=== PATIENT | female | born 1970 | race Caucasian/White ===

== ENCOUNTER 2020-05-13 18:31 | Emergency (ER) | payer MEDICARE ==
[~2020-05-13] VITALS: Ht 167.6 cm; Wt 83.9 kg
[~2020-05-13 18:31] MED LIST: ALPR1TAB2 PO; AMOX1TAB64 PO; ASCO500C10 PO; BUTA1CAP30 PO; CYCL7.5T25 PO; DOXY100C2 PO; FIORICET; LEVE500T53 PO; MAGN400T36 PO; MAGN400T9 PO; NIMO30CA3 PO; ONDA4TAB7 PO; OXYC5TAB2 PO
--- NOTE | 2020-05-13 18:48 | NUR ---
INITIAL PT CONTACT. PT PRESENTS TO ED C/O "I'VE BEEN HAVING REALLY BAD LOW BACK PAIN AND I'LL DRINK A TON OF WATER AND I'LL BARELY PEE AT ALL. IT'S BURNING WHEN I PEE AND IT GOES UP MY BACK WHEN I PEE. NUMBNESS/TINGLING DOWN MY LEGS". +FREQUENT URINATION AT NIGHT. C/O LOWER BACK PAIN AND ABD PAIN THROUGHOUT. PT ALSO C/O CHEST TIGHTNESS AND AND SOB. PT SITTING UPRIGHT ON GUER[place], NADNona, VSS. PT DENIES ANY ADDITIONAL NEEDS AT THIS TIME. CALL LIGHT AND BELONGINGS WITHIN REACH.
--- NOTE | 2020-05-13 19:30 | NUR ---
ERP AT BEDSIDE
--- NOTE | 2020-05-13 19:47 | NUR ---
BLADDER SCAN DONE PER ERP ORDER. APPROX 150-200ML NOTED IN BLADDER. PT TOLERATED WELL.
[2020-05-13 19:54] LABS: MICROSCOPIC NOT IND
[2020-05-13 20:19] VITALS: BP 121/40
--- NOTE | 2020-05-13 20:29 | NUR ---
Patient given discharge instructions and they have confirmed that they understand the instructions. Patient ambulatory with steady gait.
== END 2020-05-13 20:30 | disposition home or self-care (01) ==
LOC: ED 20:00
DX: R10.2 Pelvic and perineal pain (principal); R06.02 Shortness of breath; R07.89 Other chest pain; M54.5 Low back pain; Z86.73 Personal history of transient ischemic attack (TIA), and cerebral infarction without residual deficits
CPT/HCPCS: 81003; 99284

== ENCOUNTER 2020-11-19 14:29 | Emergency (ER) | payer MEDICARE, OTHER ==
[~2020-11-19] VITALS: Ht 167.6 cm; Wt 89.5 kg
--- NOTE | 2020-11-19 14:55 | NUR ---
Assist RN: first contact with patient. Patient presents to ER c/o chest pressure radiating to left arm. Also c/o SOB. Symptoms intermittent x a couple months but worse the last couple days. Also c/o chronic cough. No cardiac hx. Patient is in NAD. Respirations even and unlabored.
[2020-11-19] MEDS ORDERED: ASPIRIN 81 MG TABLET CHEW PO ONE (15:00)
[2020-11-19] MEDS ORDERED: ASPIRIN 81 MG TABLET CHEW ONE (15:11)
--- NOTE | 2020-11-19 15:18 | NUR ---
pt medicated per order, tolerated well, vss, nadn. awaiting lab/xr results and dispo
[2020-11-19 15:29] LABS: BASOPHILS % (AUTO) 1 % (0-1); EOSINOPHILS % (AUTO) 1 % (1-7); LYMPHOCYTES % (AUTO) 33 % (22-44); MEAN CORPUSCULAR HEMOGLOBIN 30.2 pg (27.0-34.8); MEAN CORPUSCULAR HGB CONC 34.4 g/dL (32.4-35.8); MEAN PLATELET VOLUME 8.2 fL (7.4-10.4); MONOCYTES % (AUTO) 8 % (2-9); NEUTROPHILS % (AUTO) 56 % (42-75); PLATELET COUNT 303 x10^3/uL (130-400); RED BLOOD COUNT 4.97 x10^6/uL (3.82-5.3); RED CELL DISTRIBUTION WIDTH 14.4 % (9.6-15.2)
[2020-11-19 15:39] LABS: ALBUMIN 3.8 g/dL (3.4-5.0); ANION GAP 7 mmol/L (5-15); CALCIUM 9.2 mg/dL (8.5-10.1); CHLORIDE 106 mmol/L (98-107)
[2020-11-19 15:45] LABS: ALANINE AMINOTRANSFERASE 26 U/L (12-78); ALKALINE PHOSPHATASE 80 U/L (45-117); BILIRUBIN,TOTAL 0.3 mg/dL (0.2-1.0); CREATININE 0.61 mg/dL (0.55-1.02); TOTAL PROTEIN 7.7 g/dL (6.4-8.2); TROPONIN I < 0.015 ng/mL (0.000-0.045)
[2020-11-19 16:18] VITALS: BP 101/60
--- NOTE | 2020-11-19 16:47 | NUR ---
pt resting in bed, vss, nadn. pt up for recheck
--- NOTE | 2020-11-19 17:05 | NUR ---
dale Watts at bedside to discuss results and poc
--- NOTE | 2020-11-19 17:52 | NUR ---
pt educated on dc instructions and follow-up, verbalized understanding. ambulatory to dc desk with steady gait.
== END 2020-11-19 18:00 | disposition home or self-care (01) ==
LOC: ED 17:58
DX: R07.89 Other chest pain (principal); R06.00 Dyspnea, unspecified
CPT/HCPCS: 36415; 71046; 80053; 83880; 84484; 85025; 93005; 99285

== ENCOUNTER 2020-12-15 10:59 | Outpatient (CLI) | payer MEDICARE, OTHER ==
[~2020-12-15 10:59] MED LIST changes: -DOXY100C2 PO; +DOXY100C5 PO
== END 2020-12-15 23:59 | disposition home or self-care (01) ==
LOC: RAD 10:59
PROVIDERS: ATTEND Obstetrics & Gynecology Gynecology
DX: R14.0 Abdominal distension (gaseous) (principal); R10.2 Pelvic and perineal pain
CPT/HCPCS: 76830